=== PATIENT | male | born 1955 ===

== ENCOUNTER 2025-07-27 03:22 | Outpatient (CLI) | payer MEDICARE, OTHER, SELFPAY ==
--- NOTE | 2025-07-27 | DI.RAD_ITS ---
Exam(s) RF BARIUM SWALLOW EXAM: RF BARIUM SWALLOW CLINICAL HISTORY: DYSPHAGIA, R13.10 TECHNIQUE: 2D and realtime digital imaging was performed. CONTRAST MATERIAL: Oral barium contrast was administered. COMPARISON: No exams were available for comparison FINDINGS: CHEST X-RAY: The heart and pulmonary vasculature are within normal limits. The lungs are clear. No pleural effusion or pneumothorax is present. The bones are within normal limits for the patient's age. ESOPHAGRAM: The esophagus is patent with no evidence for erosions, fold thickening, strictures, or masses. With regards to the motility, there is a normal primary stripping wave. No tertiary contractions were noted. There is a small hiatal hernia. There was no gastroesophageal reflux identified during the examination. IMPRESSION: Small hiatal hernia, otherwise unremarkable examination. RADIATION DOSE DELIVERED: elvia Mendoza=31.3 mGy
[2025-07-27] MEDS: Barium Sulfate 700 MG TAB PO (11:01)
[2025-07-27] MEDS: Barium Sulfate 60% W/V 355 ML BTL PO ×2 (11:02→11:03)
[2025-07-27] MEDS: Barium Sulfate 98% W/W 140 ML BTL PO (11:05)
== END 2025-07-27 03:42 ==
DX: R13.10 Dysphagia, unspecified (principal); K44.9 Diaphragmatic hernia without obstruction or gangrene
CPT/HCPCS: 74221; J3490